=== PATIENT | male | born 1945 | race Caucasian/White ===

== ENCOUNTER → 2017-08-19 | Outpatient (CLI) | payer MEDICARE ==
[~2017-08-19] MED LIST: DOCUSATE CALCI240 MG PO; GREEN TEA1 EACH PO; HYDROCODON-ACE1 EAC7 PO; MIRALAX17 GM PO; OXYCODONE-ACET1 EACH PO; PRINIVIL10 MG PO; PROBIOTIC1 EAC1 PO; TESSALON PERLE100 MG PO; VITAMIN D1000 UNI2 PO
--- NOTE | 2017-09-01 20:19 | ONC ---
[place] [address] RADIATION ONCOLOGY NOTE Name: RICKEY RENTERIA III Room: [facility]#: [id number] Admission: 08/19/17 Attend Phys: Keyshawn Preciado MD Discharge: Date of : 49 Report #: [id number] THIS REPORT FOR: //name// CC: Keyshawn Bills DO DATE OF PROCEDURE: 08/19/2017 REFERRING PHYSICIANS: Include Jessica Gonzalez MD; Edu Blackwood MD; David Kennedy MD; Bib Bills DO; Danyell Montgomery MD. [facility] phone is [phone]. 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 It was considered stage IVC initially because PET/CT findings revealed possible bone metastases in the clivus region, but that appeared to have completely responded to therapy. The patient received chemoradiotherapy. Radiation treatments were completed on 02/24/2014. PROCEDURE: Nasopharyngolaryngoscopy. FINDINGS: On nasopharyngolaryngoscopy via the left nostril after administration of a small amount of 2% viscous lidocaine orally and 2% viscous lidocaine to the left nostril via a cotton swab; there were no visible lesions in the nasopharynx. There were no visible lesions in the posterior oropharynx and no visible lesions in the base of tongue area. The true vocal cords were normally mobile bilaterally without visible lesions. There was no evidence of head and neck cancer. Thank you for allowing me to participate in the care of this patient. <ELECTRONICALLY SIGNED> By: Keyshawn Preciado MD 09/01/17 2019 1541 [id number] Preciado MD /nt
--- NOTE | 2017-09-01 20:33 | ONC ---
[place] [address] RADIATION ONCOLOGY NOTE Name: RICKEY RENTERIA III Room: [facility]#: [id number] Admission: 08/19/17 Attend Phys: Keyshawn Preciado MD Discharge: Date of : 49 Report #: [id number] THIS REPORT FOR: //name// CC: Keyshawn Horan MD DATE OF SERVICE: 08/19/2017 RADIATION ONCOLOGY FOLLOWUP NOTE REFERRING PHYSICIANS: Danyell Montgomery MD; Edu Blackwood MD; Jessica Gonzalez MD; Bib Bills DO and David Kennedy MD [facility] phone is [phone]. PRIMARY SITE AND HISTOPATHOLOGY: The patient's clinical findings were consistent with a stage IVC base of tongue cancer with right neck lymphadenopathy. It was initially considered stage IVC because the patient had PET/CT findings that possibly showed bone metastasis involving the clivus region. The patient received chemoradiotherapy. The radiation treatments were completed on 09/24/2013. INTERVAL NOTE: The patient felt like he was eating well. He eats food such as beef, chicken and fish. He missed his appointment with his green building materials distributor, Dr. Kennedy last year, since he forgot about his appointment. He uses PreviDent gel for his dental care. MEDICATIONS: Vitamin D and he has PreviDent gel. SOCIAL HISTORY: The patient is single. Cigarettes: he does not smoke cigarettes. REVIEW OF SYSTEMS: RESPIRATORY: The patient was not short of breath during this appointment. His breathing was stable. GASTROINTESTINAL: He has a good appetite. MUSCULOSKELETAL: He has good range of motion of his extremities. PHYSICAL EXAMINATION: VITAL SIGNS: The patient weighed 266.4 pounds on 08/19/2017 and 148.8 pounds on 12/07/2017. On 08/19/2017, blood pressure was 140/58, pulse 56, respirations 24, oxygen saturation 96%. LYMPH NODES: He had no palpable cervical or supraclavicular lymphadenopathy. HEAD, EYES, EARS, [place] [address] RADIATION ONCOLOGY NOTE Name: RICKEY RENTERIA [facility] Room: [facility]#: [id number] Admission: 08/19/17 Attend Phys: Keyshawn Preciado MD Discharge: Date of : 49 Report #: [id number] NOSE AND THROAT: Mouth had no suspicious visible lesions or suspicious palpable lesions. On nasopharyngolaryngoscopy via the left nostril after administration of a small of 2% viscous lidocaine orally and 2% viscous lidocaine to left nostril via a cotton swab, there were no visible lesions in the nasopharynx and no visible lesions in the posterior oropharynx. There were no visible lesions involving the base of tongue area. The true vocal cords were normally mobile bilaterally without any visible lesions. HEART: Had a regular rate and rhythm without murmur. LUNGS: were clear to auscultation. LABORATORY DATA: From 05/27/2017, hemoglobin 14.6, platelets were 12,000, white blood cells 6. Sodium 139, potassium 4.2, BUN 8, creatinine 1.02. TSH 3.814. RADIOLOGIC DATA: Neck and chest CT on 02/18/2017, he had post-treatment changes in the neck with stable fibrosis. There was no evidence of recurrent tumor or metastatic disease in the neck. A Chest CT showed granulomatous disease in the chest and calcified coronary artery disease and aortic valvular calcifications. ASSESSMENT AND PLAN: 1. History of head and neck cancer- There is no evidence of head and neck cancer at this time. His medical oncologist, Dr. Gonzalez, has ordered a neck and chest CT on 02/17/2018 and she is following up with the patient on 02/18/2018. I Ordered lab work consisting of a TSH, basic metabolic panel, complete blood count in February 2018 and I asked the patient to follow up with me afterwards. 2. Dentition- The patient was given a refill for PreviDent gel to use for dental care. 3. Aortic calcifications and aortic ectasia- The patient missed his appointment with his green building materials distributor, Dr. Kennedy. He simply forgot about that appointment, so the nurse got him a new appointment with Dr. Kennedy in the near future. Thank you for allowing me to participate in the care of this patient. <ELECTRONICALLY SIGNED> By: Keyshawn Preciado MD 09/01/17 2033 1605 [id number] Preciado MD /nt
== END | disposition home or self-care (01) ==
LOC: M.RTH 05-31 10:15
DX: C02.9 Malignant neoplasm of tongue, unspecified (principal); R59.0 Localized enlarged lymph nodes; I77.810 Thoracic aortic ectasia; Z88.0 Allergy status to penicillin; Z79.891 Long term (current) use of opiate analgesic; Z79.899 Other long term (current) drug therapy

== ENCOUNTER → 2018-03-05 | Outpatient (CLI) | payer MEDICARE ==
--- NOTE | ~2018-03-05 | ONC ---
[address] [address] RADIATION ONCOLOGY NOTE Name: RICKEY RENTERIA III Room: [facility]#: [id number] Admission: 03/05/18 Attend Phys: Keyshawn Preciado MD Discharge: Date of : 49 Report #: [id number] THIS REPORT FOR: //name// CC: Keyshawn Montgomery DATE OF SERVICE: 03/05/2018 REFERRING PHYSICIANS: Jessica Gonzalez MD; Dr. Blackwood, Dr. David Kennedy. [facility] phone is [phone]. PRIMARY SITE AND HISTOPATHOLOGY: The patient's clinical findings were initially consistent with a stage 4C base of tongue cancer with symptomatic right neck lymphadenopathy. He was considered stage 4C initially because the PET/CT findings revealed possible bone metastasis to the clivus region, but that appeared to have completely resolved in response to therapy. The patient received chemoradiotherapy. Radiation treatments were completed on 02/24/2014. PROCEDURE: Nasopharyngolaryngoscopy. FINDINGS: On nasopharyngolaryngoscopy via the left nostril after administration of a small amount of 2% viscous lidocaine orally and 2% viscous lidocaine to left nostril via cotton swab, there were no visible lesions in the nasopharynx. There were no visible lesions in the posterior pharynx. No visible lesions in the base of tongue area. The true vocal cords were normally mobile bilaterally without visible lesions. There was no evidence of head and neck cancer. Thank you for allowing me to participate in the care of this patient. By: [id number] Preciado MD /nt
--- NOTE | ~2018-03-05 | ONC ---
[address] [address] RADIATION ONCOLOGY NOTE Name: RICKEY RENTERIA III Room: [facility]#: [id number] Admission: 03/05/18 Attend Phys: Keyshawn Preciado MD Discharge: Date of : 49 Report #: [id number] THIS REPORT FOR: //name// CC: Keyshawn Montgomery DATE OF SERVICE: 03/05/2018 REFERRING PHYSICIANS: Edu Blackwood MD; Jessica Gonzalez MD; David Kennedy MD [facility] phone is [phone]. PRIMARY SITE AND HISTOPATHOLOGY: The patient's clinical findings were consistent with a stage 4C base of tongue cancer with right neck lymphadenopathy. It was initially considered stage 4C because the patient had PET/CT findings that possibly showed bone metastasis involving the clivus region. The patient received chemoradiotherapy. The radiation treatments were completed on 09/24/2013. INTERVAL NOTE: The patient feels he is doing well. He is eating well. He is eating foods such as beef, chicken and fish. He is at present totally complaint with using his PreviDent fluoride gel. MEDICATIONS: Vitamin D and PreviDent gel. SOCIAL HISTORY: The patient is single. Cigarettes, he does not smoke. REVIEW OF SYSTEMS: RESPIRATORY: The patient was not short of breath during this appointment. His breathing was stable. GASTROINTESTINAL: He has a good appetite. MUSCULOSKELETAL: He has good range of motion of his extremities. PHYSICAL EXAMINATION: VITAL SIGNS: The patient weighed 271.2 pounds on 03/05/2018, 266.4 pounds on 08/19/2017 and on 03/05/2018, blood pressure is 147/65, pulse 59, respirations 18, oxygen saturation 96%. LYMPH NODES: He had no palpable cervical or supraclavicular lymphadenopathy. HEAD, EYES, EARS, NOSE AND THROAT: Mouth had no suspicious visible lesions or suspicious palpable lesions. On nasopharyngolaryngoscopy via the left nostril after administration of a small amount of 2% viscous lidocaine orally, 2% viscous lidocaine to left nostril via cotton swab, there were no visible lesions in the nasopharynx. No visible lesions in the posterior oropharynx. True vocal cords were normally mobile bilaterally without any visible lesions. HEART: Had a regular rate and rhythm without murmur. LUNGS: [place] [address] RADIATION ONCOLOGY NOTE Name: RICKEY RENTERIA III Room: [facility]#: [id number] Admission: 03/05/18 Attend Phys: Keyshawn Preciado MD Discharge: Date of : 49 Report #: [id number] LABORATORY DATA: From 02/17/2018, sodium 136, potassium 3.9, BUN 7, creatinine 1.07, AST 20, ALT 16. TSH was 3.05. White blood cell count was 5.7, hemoglobin 14.9, platelets were 245,000. RADIOLOGIC DATA: From 02/17/2018, neck and chest CT revealed post-therapeutic changes in the neck with no evidence of recurrent tumor or metastatic disease and stable nodules in the lung since 2014, which were thought to be due to granulomatous disease. 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 ASSESSMENT AND PLAN: 1. History of head and neck cancer. There is no evidence of head and neck cancer at this time. The patient was given a requisition for a complete metabolic panel, complete blood count and TSH in 08/2018. He is asked to schedule a followup appointment to see me afterwards. 2. Dentition. The patient was given a refill for PreviDent gel. 3. Aortic calcifications, coronary artery disease and aortic ectasia. The patient was reminded to continue following up with his technical sales advisor, Dr. Kennedy. Thank you for allowing me to participate in the care of this patient. By: [id number] Preciado MD /veena
== END ==
LOC: M.RTH 02-26 09:30
DX: Z08 Encounter for follow-up examination after completed treatment for malignant neoplasm (principal); I25.10 Atherosclerotic heart disease of native coronary artery without angina pectoris; I70.0 Atherosclerosis of aorta; Z85.89 Personal history of malignant neoplasm of other organs and systems

== ENCOUNTER → 2019-09-18 | Outpatient (CLI) | payer MEDICARE ==
--- NOTE | ~2019-09-18 | ONC ---
[address] [address] RADIATION ONCOLOGY NOTE Name: RICKEY RENTERIA III Room: [facility]#: [id number] Admission: 09/18/19 Attend Phys: Keyshawn Preciado MD Discharge: Date of : 49 Report #: [id number] THIS REPORT FOR: //name// CC: Keyshawn Montgomery DATE OF SERVICE: 09/18/2019 RADIATION ONCOLOGY FOLLOWUP NOTE REFERRING PHYSICIANS: Dr. Blackwood, Dr. Jessica Gonzalez, and Dr. Kennedy [facility] phone is [phone]. PRIMARY SITE AND HISTOPATHOLOGY: The patient's clinical findings were initially consistent with a stage 4C base of tongue cancer with right neck lymphadenopathy that was initially considered stage 4C because the patient had a PET/CT findings that possibly showed bone metastasis involving the clivus region. The patient received chemoradiotherapy. Radiation treatments were completed on 09/24/2013. INTERVAL NOTE: Overall, the patient is gaining weight. He is eating a regular diet. He is using a PreviDent fluoride gel. MEDICATIONS: Right now are the PreviDent gel. SOCIAL HISTORY: The patient is single. Cigarettes, he does not smoke. REVIEW OF SYSTEMS: RESPIRATORY: The patient was not short of breath during his appointment. His breathing was stable. GASTROINTESTINAL: He had a good appetite. PHYSICAL EXAMINATION: VITAL SIGNS: The patient weighed 272 pounds on 09/18/2019 and 264.6 pounds on 08/15/2018 and on 09/18/2019 blood pressure was 128/60, pulse 53, oxygen saturation was 94%, respirations 20, temperature 97.9 degrees Fahrenheit. LYMPH NODES: The patient had no palpable cervical or supraclavicular lymphadenopathy. HEAD, EYES, EARS, NOSE, AND THROAT: Mouth had no suspicious visible lesions or suspicious palpable lesions. On nasopharyngolaryngoscopy via the left nostril after administration of a small amount of 2% viscous lidocaine orally and 2% viscous lidocaine to the left nostril via cotton swab, there were no visible lesions in the nasopharynx, no visible lesions in the posterior oropharynx. The true vocal cords were normally mobile bilaterally without any visible lesions. HEART: Had a regular rate and rhythm without murmur. LUNGS: [place] [address] RADIATION ONCOLOGY NOTE Name: RICKEY RENTERIA III Room: [facility]#: [id number] Admission: 09/18/19 Attend Phys: Keyshawn Preciado MD Discharge: Date of : 49 Report #: [id number] LABORATORY DATA: From 09/14/2019, hemoglobin was 14.9. Platelets were 252,000. White blood cells were 6.3. Sodium was 141, potassium 3.9. TSH was 5.1, which was elevated. Free T4 was 0.8. ASSESSMENT AND PLAN: 1. History of head and neck cancer. There is no evidence of head and neck cancer at this time. The patient is scheduled to see his medical oncologist, Dr. Gonzalez 02/16/2020. He was given a requisition for lab work in about 1 year and he was asked to schedule a followup appointment to see me afterwards. 2. Dentition. He was given a refill for his PreviDent gel to use for dental care. 3. Hypothyroidism. The patient's TSH was slowly increasing and that is above the normal level, so he was prescribed 25 mcg of levothyroxine per day and a TSH was ordered in about 1 year and the patient was asked to schedule a followup appointment to see me afterwards. Thank you for allowing me to participate in the care of this patient. By: 1134 [id number] Preciado MD /veena
--- NOTE | ~2019-09-18 | ONC ---
[address] [address] RADIATION ONCOLOGY NOTE Name: RICKEY RENTERIA MARIANA Room: [facility]#: [id number] Admission: 09/18/19 Attend Phys: Keyshawn Preciado MD Discharge: Date of : 49 Report #: [id number] THIS REPORT FOR: //name// CC: Keyshawn Montgomery DATE OF SERVICE: 09/18/2019 RADIATION ONCOLOGY PROCEDURE NOTE REFERRING PHYSICIANS: Dr. Kennedy, Dr. Blackwood and Jessica Gonzalez MD [facility] phone is [phone]. PRIMARY SITE AND HISTOPATHOLOGY: The patient's clinical findings were initially consistent with a stage 4C base of tongue cancer with symptomatic right neck lymphadenopathy. This was considered stage 4C initially because the PET/CT findings revealed possible bone metastasis to the clivus region, but that appeared to have completely resolved in response to therapy. The patient received chemoradiotherapy. Radiation treatments were completed on 02/24/2014. PROCEDURE: Nasopharyngolaryngoscopy. FINDINGS: On nasopharyngolaryngoscopy via the left nostril after administration of a small amount of 2% viscous lidocaine orally and 2% viscous lidocaine to the left nostril via cotton swab, there were no visible lesions in the nasopharynx and no visible lesions in the posterior oropharynx. There were no visible lesions in the base of tongue area. The true vocal cords were normally mobile bilaterally without visible lesions. There is no evidence of head and neck cancer. Thank you for allowing me to participate in the care of this patient. By: [id number] Preciado MD /veena
== END ==
LOC: M.RTH 08-21 13:00
DX: Z08 Encounter for follow-up examination after completed treatment for malignant neoplasm (principal); E03.9 Hypothyroidism, unspecified